=== PATIENT | female | born 1990 | race Two or more races ===

== ENCOUNTER 2017-05-14 09:24 | Inpatient (IN) | payer MEDICAID ==
[~2017-05-14] VITALS: Ht 165.1 cm; Wt 86.4 kg
[~2017-05-14 09:24] MED LIST: IBUP-1222 PO; OXYC-302 PO; PREN1TAB27 PO
[2017-05-18] MEDS ORDERED: OXYTOCIN 30U/ 0.9% NaCL 500ML 500 ML IV SCH (07:40)
[2017-05-18] MEDS ORDERED: LACTATED RINGERS 1,000 ML IV SCH ×2 (07:40→08:00)
[2017-05-18] MEDS ORDERED: METOCLOPRAMIDE 5 MG/ML, 2ML IV ONE (08:00)
[2017-05-18] MEDS ORDERED: LACTATED RINGERS 1,000 ML IVBOLUS ONE (08:00)
[2017-05-18] MEDS ORDERED: SODIUM CITRATE/CITRIC ACID 30 ML UDC PO ONE (08:00)
[2017-05-18] MEDS ORDERED: NEWBORN KIT ONE (08:06)
[2017-05-18] MEDS ORDERED: OXYTOCIN 30U/ 0.9% NaCL 500ML 500 ML ONE (08:06)
[2017-05-18] MEDS ORDERED: METOCLOPRAMIDE 5 MG/ML, 2ML ONE (08:06)
[2017-05-18] MEDS ORDERED: SODIUM CITRATE/CITRIC ACID 30 ML UDC ONE (08:06)
[2017-05-18 08:10] LABS: HEMATOCRIT 39.2 % (34.6-47.8); HEMOGLOBIN 13.4 g/dL (11.7-16.4); WHITE BLOOD COUNT 9.5 x10^3/uL (3.4-10)
[2017-05-18] MEDS ORDERED: morphine SULFATE/PF 1 MG/ML, 10ML ONE (09:31)
[2017-05-18] MEDS ORDERED: CEFAZOLIN 1,000 MG ONE (09:49)
[2017-05-18] MEDS ORDERED: PHENYLEPHRINE 10 MG/ML ONE (09:49)
[2017-05-18] MEDS ORDERED: ONDANSETRON 2MG/ML, 2ML ONE (09:49)
[2017-05-18] MEDS ORDERED: EPHEDRINE 50 MG/ML, 1ML ONE (09:49)
[2017-05-18] MEDS ORDERED: OXYcodone IR 5MG TABLET PO PRN ×2 (10:00)
[2017-05-18] MEDS ORDERED: SIMETHICONE 80 MG CHEW TAB PO PRN (10:00)
[2017-05-18] MEDS ORDERED: MEPERIDINE/PF 25MG/0.5ML IM PRN (10:00)
[2017-05-18] MEDS ORDERED: MEPERIDINE/PF 50 MG/ML IM PRN (10:00)
[2017-05-18] MEDS ORDERED: MISOPROSTOL 200 MCG TABLET PR PRN (10:00)
[2017-05-18] MEDS ORDERED: CALCIUM CARBONATE 500 MG TAB.CHEW PO PRN (10:00)
[2017-05-18] MEDS ORDERED: morphine SULFATE 10 MG/ML, 1ML IVPush PRN ×2 (10:00)
[2017-05-18] MEDS ORDERED: OXYcodone/APAP 5/325MG TABLET PO PRN (10:00)
[2017-05-18] MEDS ORDERED: ONDANSETRON 2MG/ML, 2ML IV PRN (10:00)
[2017-05-18] MEDS ORDERED: KETOROLAC 30 MG/1 ML ONE (12:09)
[2017-05-18] MEDS: KETOROLAC 30 MG/1 ML IV SCH ×2 (12:11→18:02)
[2017-05-18 13:00] VITALS: BP 110/61
[2017-05-18] MEDS: OXYcodone/APAP 5/325MG TABLET PO PRN (16:05)
[2017-05-18 16:40] VITALS: BP 108/72
[2017-05-18 18:10] VITALS: BP 98/57
[2017-05-18 18:48] LABS: HEMATOCRIT 35.3 % (34.6-47.8); HEMOGLOBIN 11.9 g/dL (11.7-16.4); WHITE BLOOD COUNT 11.5 x10^3/uL (3.4-10)
[2017-05-18 19:43] VITALS: BP 103/61
[2017-05-18] MEDS: LACTATED RINGERS 1,000 ML IV SCH ×2 (19:52→20:10)
[2017-05-18] MEDS: OXYTOCIN 30U/ 0.9% NaCL 500ML 500 ML IV SCH (19:52)
[2017-05-19] MEDS: DOCUSATE 100 MG CAPSULE PO SCH ×3 (00:04→20:15)
[2017-05-19] MEDS: KETOROLAC 30 MG/1 ML IV SCH ×2 (00:04→05:49)
[2017-05-19] MEDS: OXYcodone/APAP 5/325MG TABLET PO PRN ×4 (00:05→18:06)
[2017-05-19 00:10] VITALS: BP 91/57
[2017-05-19] MEDS: LACTATED RINGERS 1,000 ML IV SCH ×5 (01:52→17:11)
[2017-05-19 04:35] VITALS: BP 90/52
[2017-05-19] MEDS: OXYTOCIN 30U/ 0.9% NaCL 500ML 500 ML IV SCH ×2 (05:52→15:52)
[2017-05-19] MEDS: PRENATAL VIT/IRON/FA 1 EACH TABLET PO SCH (08:39)
[2017-05-19 08:40] VITALS: BP 95/50
[2017-05-19] MEDS: IBUPROFEN 600 MG TABLET PO PRN ×2 (12:03→18:06)
[2017-05-19 19:50] VITALS: BP 100/56
[2017-05-20 00:53] VITALS: BP 94/52
[2017-05-20] MEDS: LACTATED RINGERS 1,000 ML IV SCH ×4 (01:52→11:52)
[2017-05-20] MEDS: OXYTOCIN 30U/ 0.9% NaCL 500ML 500 ML IV SCH ×2 (01:52→11:52)
[2017-05-20] MEDS: OXYcodone/APAP 5/325MG TABLET PO PRN ×2 (02:15→08:32)
[2017-05-20] MEDS: IBUPROFEN 600 MG TABLET PO PRN ×2 (02:15→08:31)
[2017-05-20 03:31] VITALS: BP 98/60
[2017-05-20] MEDS ORDERED: IBUP-1223 PO (07:50)
[2017-05-20] MEDS ORDERED: DOCU-131 PO (07:51)
[2017-05-20 08:10] VITALS: BP 98/58
[2017-05-20] MEDS: PRENATAL VIT/IRON/FA 1 EACH TABLET PO SCH (08:31)
[2017-05-20] MEDS: DOCUSATE 100 MG CAPSULE PO SCH (08:32)
== END 2017-05-20 12:42 | disposition home or self-care (01) | DRG 766 ==
LOC: LDIP 05-18 07:26 → 2NW 05-18 12:55
PROVIDERS: ADMIT Obstetrics & Gynecology; ATTEND Obstetrics & Gynecology
PROC: 10D00Z1 Extraction of Products of Conception, Low, Open Approach (ICD-10-PCS; principal; 2017-05-18)
PROC: 0UB70ZZ Excision of Bilateral Fallopian Tubes, Open Approach (ICD-10-PCS; 2017-05-18)
DX: O34.211 Maternal care for low transverse scar from previous cesarean delivery (principal); N83.8 Other noninflammatory disorders of ovary, fallopian tube and broad ligament; Z37.0 Single live birth; O69.81X0 Labor and delivery complicated by cord around neck, without compression, not applicable or unspecified; Z30.2 Encounter for sterilization; Z3A.39 39 weeks gestation of pregnancy
CPT/HCPCS: 36415; 85025; 86850; 86900; 88302; J0690; J1885; J2274; J2405; J2370; J2590; J2765; J7120